=== PATIENT | male | born 1995 | race Caucasian/White ===

== ENCOUNTER 2020-10-07 10:39 | Emergency (ER) | payer OTHER ==
[~2020-10-07] VITALS: Ht 177.8 cm; Wt 110.0 kg
[2020-10-07 10:48] VITALS: BP 165/93
[2020-10-07] MEDS ORDERED: HYDR-3965 PO (14:13)
[2020-10-07] MEDS ORDERED: CYCL-1 PO (14:13)
[2020-10-07] MEDS ORDERED: acetaminophen 325mg tablet PO ONE (14:15)
[2020-10-07] MEDS ORDERED: ibuprofen tablet 400 MG TABLET PO ONE (14:15)
== END 2020-10-07 14:27 | disposition home or self-care (01) ==
LOC: ER 10:40
DX: S06.0X9A Concussion with loss of consciousness of unspecified duration, initial encounter (principal); M54.5 Low back pain; Z79.899 Other long term (current) drug therapy; X58.XXXA Exposure to other specified factors, initial encounter; Y93.89 Activity, other specified; Y92.89 Other specified places as the place of occurrence of the external cause; Y99.8 Other external cause status
CPT/HCPCS: 99283